=== PATIENT | female | born 1995 | race Caucasian/White ===

== ENCOUNTER 2016-11-01 02:00 | Emergency (ER) | payer MEDICAID ==
[2016-11-01 02:21] VITALS: BP 134/84
--- NOTE | 2016-11-01 05:01 | ER ---
DATE SEEN: 11/01/2016 CHIEF COMPLAINT: Injury of the left ankle. HISTORY OF PRESENT ILLNESS: This is a 21-year-old female, who jumped from a second story about 10 feet and landed on the left ankle. She was brought in by ambulance with an injury to the left ankle, obvious dislocation, and severe pain. She had been drinking alcohol and is intoxicated. REVIEW OF SYSTEMS: Denies any back pain, head injury, loss of consciousness, difficulty breathing. ALLERGIES: No known allergies. PHYSICAL EXAMINATION: GENERAL: Well nourished. VITAL SIGNS: Her blood pressure is normal. Temperature 97.2. HEAD: Normocephalic with no signs of trauma. EYES: Normal. NECK: No tenderness to palpation. Spine normal to inspection and palpation. ABDOMEN: Soft. CHEST: Clear. EXTREMITIES: Left ankle has an obvious posterior dislocation, but normal peripheral pulses. NEUROLOGIC: Mental status intoxicated and anxious. LABORATORY DATA: None. X-RAY: Tibial fracture and dislocation posteriorly of the ankle. IMPRESSION: Ankle dislocation. PLAN: I called the son to the ER, and Dr. Rae accepted the patient at 0230 hours, and patient will be sent over by ambulance. /[id number] BRODY/DIANA
--- NOTE | 2016-11-01 10:18 | CR ---
INDICATION: Fall. LEFT ANKLE: Frontal and lateral views of the left ankle revealed comminuted medial and lateral malleolar fracture fragments, as well as posterior malleolar fracture fragments with fairly marked lateral angulation at the fracture sites and with medial offset of approximately 1-2 cm of the distal fracture fragments. The talus is subluxed posteromedially. No other bone or joint abnormality was identified. IMPRESSION: Trimalleolar fracture with angulation and subluxation - significant deformity. GONZALO
== END 2016-11-01 03:15 ==
LOC: FB.ED 02:00
DX: S93.05XA Dislocation of left ankle joint, initial encounter (principal); W17.89XA Other fall from one level to another, initial encounter
CPT/HCPCS: 51702; 73600-LT; 99283; 99285

== ENCOUNTER 2016-12-06 22:06 | Emergency (ER) | payer MEDICAID ==
[2016-12-06] MEDS ORDERED: Iopamidol 755 Mg/ML 75 ML Bottle IV ONE (22:50)
[2016-12-06 23:13] VITALS: BP 126/79
--- NOTE | 2016-12-07 00:29 | EDM.PDOC ---
ED HPI GENERAL MEDICAL PROBLEM - General Chief Complaint: Wound Recheck Stated Complaint: LT LEG PAIN Time Seen by Provider: 12/06/16 22:35 Source of Information: Reports: Patient History Limitations: Reports: No Limitations - History of Present Illness INITIAL COMMENTS - FREE TEXT/NARRATIVE: 21 y.o.w.f. came to the ed s/p ORIF of left ankle. Pt noticed pus extruding from the surgical wound in the past 2 days. Pt was seen by a PMD yesterday. She came to the ed because her symptoms got worse. No F/C/N/V or any other acute medical issues. Onset: Unknown/Unsure Onset Date: 12/05/16 Onset Time: 09:00 Duration: Day(s):, Intermittent Location: Reports: Lower Extremity, Left Quality: Reports: Burning, Dull, Pressure Severity: Mild Improves with: Reports: Immobilization Worsens with: Reports: Movement Context: Reports: Other (S/P ORIF) Associated Symptoms: Reports: No Other Symptoms Treatments NEWS PRODUCTION ASSISTANT: Reports: NSAIDS - Related Data Allergies Allergy/AdvReac Type Severity Reaction Status Date / Time No Known Allergies Allergy Verified 12/06/16 23:03 Home Meds: Home Meds Ibuprofen 400 mg PO Q8HR 12/06/16 [History] Mupirocin Cream [Bactroban Crm] 1 applic TOP BID 12/06/16 [History] Past Medical History HEENT History: Reports: Impaired Vision Psychiatric History: Reports: Anxiety, Depression - Past Surgical History HEENT Surgical History: Reports: None Social & Family History - Family History Family Medical History: Noncontributory - Tobacco Use Smoking Status *Q: Never Smoker Second Hand Smoke Exposure: No - Caffeine Use Caffeine Use: Reports: Soda - Recreational Drug Use Recreational Drug Use: Yes Recreational Drug Type: Reports: Marijuana/Hashish Recreational Drug Use Frequency: Rarely ED ROS GENERAL - Review of Systems Review Of Systems: See Below Constitutional: Reports: No Symptoms HEENT: Reports: No Symptoms Respiratory: Reports: No Symptoms Cardiovascular: Reports: No Symptoms Endocrine: Reports: No Symptoms GI/Abdominal: Reports: No Symptoms : Reports: No Symptoms Musculoskeletal: Reports: Joint Pain (of left ankle) Skin: Reports: Wound (open wound left lat ankle with pus extruding) Neurological: Reports: No Symptoms Psychiatric: Reports: No Symptoms Hematologic/Lymphatic: Reports: No Symptoms Immunologic: Reports: No Symptoms ED EXAM, SKIN/RASH Exam: See Below Exam Limited By: No Limitations General Appearance: Alert, WD/WN, No Apparent Distress Eye Exam: Bilateral Eye: Normal Inspection Ears: Normal External Exam Nose: Normal Inspection, Normal Mucosa Throat/Mouth: Normal Inspection Head: Atraumatic, Normocephalic Neck: Normal Inspection, Supple, Non-Tender Respiratory/Chest: No Respiratory Distress, Normal Breath Sounds Cardiovascular: Normal Peripheral Pulses, Regular Rate, Rhythm Peripheral Pulses: 2+: Dorsalis Pedis (L) GI/Abdominal: Normal Bowel Sounds, Soft (Female) Exam: Deferred Rectal (Female) Exam: Deferred Back Exam: Normal Inspection Extremities: Normal Inspection, Other (surgical wound left lat ankle.) Neurological: Alert, Oriented, CN II-XII Intact Psychiatric: Normal Affect, Normal Mood Skin: Warm, Dry, Other (poor surgical wound healing) Course - Vital Signs Text/Narrative:: 21 y.o.w.f. came to the ed s/p ORIF of left ankle. Pt noticed pus extruding from the surgical wound in the past 2 days. Pt was seen by a PMD yesterday. She came to the ed because her symptoms got worse. No F/C/N/V or any other acute medical issues. PE: Poor wound healing left lat ankle with pus extruding. left ankle swelling Imaging: CT left ankle with IV contrast: neg for abscess formation. Impression: Wound check, poor surgical wound healing Tx: wound care Plan: F/U with ortho as scheduled this Sunday, d/c'd with instructions Last Recorded V/S: Last Vital Signs Temp 36.7 C 12/06/16 22:35 Pulse 86 12/06/16 22:35 Resp 16 12/06/16 22:35 BP 126/79 12/06/16 22:35 Pulse Ox 96 12/06/16 22:35 - Orders/Labs/Meds Orders: Active Orders 24 hr Category Date Time Status Lower Extremity w Cont Lt [CT] Stat Exams 12/06/16 22:17 Taken Labs: Laboratory Tests 12/06/16 12/06/16 12/06/16 Range/Units 22:35 22:35 22:55 WBC 11.1 (4.5-12.0) X10-3/uL RBC 4.18 (3.23-5.20) x10(6)uL Hgb 12.8 (11.5-15.5) g/dL Hct 37.3 (30.0-51.3) % MCV 89.3 (80-96) fL MCH 30.6 (27.7-33.6) pg MCHC 34.3 (32.2-35.4) g/dL RDW 13.3 (11.5-15.5) % Plt Count 176 (125-369) X10(3)uL MPV 9.9 (7.4-10.4) fL Neut % (Auto) 76.7 (46-82) % Lymph % (Auto) 14.5 (13-37) % Laurens % (Auto) 6.1 (4-12) % Eos % (Auto) 1 (1.0-5.0) % Baso % (Auto) 2 (0-2) % Neut # (Auto) 8.5 H (1.6-8.3) # Lymph # (Auto) 1.6 (0.6-5.0) # Laurens # (Auto) 0.7 (0.0-1.3) # Eos # (Auto) 0.1 (0.0-0.8) # Baso # (Auto) 0.2 (0.0-0.2) # Sodium 134 L (135-145) mmol/L Potassium 3.2 L (3.5-5.3) mmol/L Chloride 104 (100-110) mmol/L Carbon Dioxide 20 L (23-29) mmol/L BUN 14 (5-20) mg/dL Creatinine 0.8 (0.6-1.3) mg/dL Est Cr Clr Drug Dosing TNP Estimated GFR (MDRD) > 60 (>60) BUN/Creatinine Ratio 17.5 (9-20) Glucose 96 (80-116) mg/dL Calcium 9.2 (8.6-10.2) mg/dL Urine HCG, Qual Negative (NEGATIVE) Meds: Medications Discontinued Medications Generic Name Dose Route Start Last Admin Trade Name Freq PRN Reason Stop Dose Admin Iopamidol 75 ml 12/06/16 22:50 12/06/16 23:28 Isovue-370 (76%) IV 12/06/16 22:51 75 ml ONETIME ONE Administration Departure - Departure Time of Disposition: 00:25 Disposition: Home, Self-Care 01 Condition: Good Clinical Impression: Visit for wound check - Discharge Information Referrals: PCP,None [Primary Care Provider] - Forms: ED Department Discharge Additional Instructions: Please f/u with your Orthopedic surgeon as soon as possible. Rest. Ice and elevation, Motrin for pain. Please apply a 4x4 and GOLDEN wrap to left ankle, weight bearing as tolerated. Please come back to the ed if the symptoms get acutely worse. - My Orders Last 24 Hours: My Active Orders 12/06/16 22:17 Lower Extremity w Cont Lt [CT] Stat - Assessment/Plan Last 24 Hours: My Active Orders 12/06/16 22:17 Lower Extremity w Cont Lt [CT] Stat
== END 2016-12-07 01:20 | disposition home or self-care (01) ==
LOC: FB.ED 22:06
DX: Z48.01 Encounter for change or removal of surgical wound dressing (principal); F41.9 Anxiety disorder, unspecified; F32.9 Major depressive disorder, single episode, unspecified; Z98.890 Other specified postprocedural states
CPT/HCPCS: 73701; 80048; 81025; 85025; 99283; Q9967

== ENCOUNTER 2016-12-17 02:11 | Observation (INO) | payer MEDICAID ==
[2016-12-17] MEDS ORDERED: LORazepam 2 MG/ML MDV IVPUSH PRN (03:08)
[2016-12-17 03:22] LABS: ACETAMINOPHEN < 10 ug/mL (10-30)
[2016-12-17] MEDS ORDERED: LORazepam 2 MG/ML MDV IVPUSH ONE (03:30)
--- NOTE | 2016-12-17 03:43 | ER ---
DATE SEEN: 12/17/2016 CHIEF COMPLAINT: Overdose. HISTORY OF PRESENT ILLNESS: This is a 21-year-old female, who was brought in by ambulance. She had an argument with her boyfriend and sister earlier and she threatened to take Advil PM and Wellbutrin and some anxiety pills. However, the amount or medication specific is not available. The patient was brought in hallucinating and incoherent. She had also been drinking alcohol tonight. PAST MEDICAL HISTORY: Anxiety and depression. ALLERGIES: No known allergies. PHYSICAL EXAM: Respiratory rate is 20, temperature 97.4, blood pressure 135/95, and current heart rate is in the 140s. HEAD: Normal size. EYES: Pupils are dilated, but reactive to light. NECK: Supple. MENTAL STATUS: Hallucinating, garbled speech. LABORATORY DATA: Initial white cell count is normal and initial alcohol level is 0.02. IMPRESSION: Overdose of unknown substance. PLAN: We called the Poison Control, we suspect perhaps Benadryl and there is also a possibility of serotonin syndrome. I advised her we will admit to the ICU for monitoring. We will use lorazepam p.r.n., continue the IV fluids, ordered acetaminophen salicylate levels, urine drug screen, and Dr. Hill will follow the patient in the morning. /[id number] BRODY/DIANA
[2016-12-17] MEDS: Sodium Chloride 0.9% 1,000 ML IV SCH ×3 (03:45→17:21)
[2016-12-17] MEDS: LORazepam 2 MG/ML MDV IVPUSH PRN ×10 (06:02→22:12)
--- NOTE | 2016-12-17 08:36 | PCM.HP ---
H&P History of Present Illness - General Date of Service: 12/17/16 Admit Problem/Dx: Admission Diagnosis/Problem Admission Diagnosis/Problem Drug overdose Source of Information: EMS Notes Reviewed History Limitations: Reports: Altered Mental Status - History of Present Illness Initial Comments - Free Text/Narative: This is a 21-year-old female patient brought into the ER last night by ambulance. Patient is unable to talk because of overdose. These notes were taken from the ER record. No significant others to collaborate. Apparently she was in argument with her boyfriend and sister and she been using helical per she started to take Advil, Wellbutrin and anxiety pills. Later she was brought in by ambulance coherent and hallucinated. They think she took Benadryl and maybe some Wellbutrin. Poison control was called. They suggested placing ICU given her Ativan fluids and observation. She looks at me when I talk to her and she bases a few commands. When she tries to talk its incoherent. - Related Data Allergies/Adverse Reactions: Allergies Allergy/AdvReac Type Severity Reaction Status Date / Time No Known Allergies Allergy Verified 12/17/16 08:18 Home Medications: Home Meds Ibuprofen 400 mg PO Q8HR 12/06/16 [History] Mupirocin Cream [Bactroban Crm] 1 applic TOP BID 12/06/16 [History] Acetaminophen [Tylenol] 650 mg PO Q4H PRN 12/17/16 [History] Sennosides/Docusate Sodium [Darlin-Colace] 1 tab PO BID PRN 12/17/16 [History] Past Medical History HEENT History: Reports: Impaired Vision Psychiatric History: Reports: Addiction, Anxiety, Depression, Hallucinations, Panic Attack, Suicide Attempt, Other (See Below) Other Psychiatric History: possible suicide attempt, pt did jump out of a window when under the influence. Possible addiction. Pt told mother that she really likes her anxiety meds. Pt overdosed tonight. Pt is showing signs of ETOH addiction according to her mother. Pt is hallucinating r/t to overdose - Past Surgical History HEENT Surgical History: Reports: None Musculoskeletal Surgical History: Reports: Other (See Below) (Left ankle repair status post trimalleolar fracture of the ankle) Other Musculoskeletal Surgeries/Procedures:: broken ankle, surgery required. Pt jumped out of window Social & Family History - Family History Family Medical History: Noncontributory Psychiatric: Reports: Depression, Hallucinations, Panic Attack, Suicide Attempt Other Psychiatric Family History: biological mother has split personality disorder, adoptive mother reports. grandmother by suicide - Tobacco Use Smoking Status *Q: Never Smoker Second Hand Smoke Exposure: No - Caffeine Use Caffeine Use: Reports: None - Recreational Drug Use Recreational Drug Use: Yes Drug Use in Last 12 Months: Yes Recreational Drug Type: Reports: Marijuana/Hashish, Other (see below) Other Recreational Drug Type: unsure about other illicit drugs. Pt is unable to answer coherently. Recreational Drug Use Frequency: Rarely H&P Review of Systems - Review of Systems: Review Of Systems: Unable To Obtain Exam - Exam Exam: See Below - Vital Signs Vital Signs: Last Vital Signs Temp 98.7 F 12/17/16 07:25 Pulse 152 H 12/17/16 07:25 Resp 26 H 12/17/16 07:25 BP 127/92 H 12/17/16 07:25 Pulse Ox 97 12/17/16 07:25 Weight: 143 lb 1 oz - Exam General: Sedated, Lethargic, Obtunded HEENT: Conjunctiva Clear, Posterior Pharynx Clear, TMs Clear, Other (Pupils dilated bilateral). No: Pupils Equal Neck: Supple, Trachea Midline Lungs: Clear to Auscultation, Normal Respiratory Effort Cardiovascular: Regular Rate, Regular Rhythm, Tachycardia. No: Systolic Murmur , Diastolic Murmur Abdomen: Normal Bowel Sounds, Soft. No: Peritoneal Signs, Distention, Guarding Back Exam: Normal Inspection Extremities: Normal Inspection Skin: Warm, Dry, Intact Neurological: Normal Tone, Other (Patient moving at times like she startled. She looks around but does not respond.). No: Normal Speech Psychiatric: Other (Unable to assess) - Patient Data Lab Results Last 24 hrs: Laboratory Results - last 24 hr 12/17/16 Range/Units 04:25 Urine Opiates Screen Negative (NEGATIVE) Ur Oxycodone Screen Negative (NEGATIVE) Ur Propoxyphene Screen Negative (NEGATIVE) Ur Barbituates Screen Negative (NEGATIVE) Ur Tricyclics Screen Negative (NEGATIVE) Ur Phencyclidine Scrn Negative (NEGATIVE) Ur Amphetamine Screen Negative (NEGATIVE) Urine MDMA Screen Negative (NEGATIVE) U Benzodiazepines Scrn Negative (NEGATIVE) U Cocaine Metab Screen Negative (NEGATIVE) U Marijuana (THC) Screen Negative (NEGATIVE) Result Diagrams: 12/17/16 02:50 12/17/16 02:50 *Q Meaningful Use (ADM) - VTE *Q VTE Criteria *Q: - Stroke *Q Stroke Criteria *Q: - AMI *Q AMI Criteria *Q: - Problem List (1) Overdose SNOMED Code(s): 40725966 ICD Code: T50.901A - POISONING BY UNSP DRUG/MEDS/BIOL SUBST, ACCIDENTAL, INIT Status: Acute Current Visit: Yes (2) Suicide attempt SNOMED Code(s): 22803128 ICD Code: T14.91 - SUICIDE ATTEMPT Status: Acute Current Visit: Yes Problem List Initiated/Reviewed/Updated: Yes Orders Last 24hrs: Active Orders 24 hr Category Date Time Status Ibuprofen [Ibuprofen] Med 12/17/16 05:15 Pending 400 mg PO Q8HR LORazepam [Ativan] Med 12/17/16 04:22 Active 1 mg IVPUSH Q2H PRN Mupirocin Cream [Bactroban Crm] Med 12/17/16 09:00 Pending 1 applic TOP BID EKG 12 Lead [EK] Routine Ther 12/17/16 02:20 Ordered Medication Orders Sodium Chloride (Normal Saline) 1,000 mls @ 150 mls/hr IV ASDIRECTED [facility] Last Admin: 12/17/16 03:45 Dose: 150 mls/hr Lorazepam (Ativan) 1 mg IVPUSH Q2H PRN PRN Reason: Agitation Last Admin: 12/17/16 08:02 Dose: 1 mg Admin: 12/17/16 06:02 Dose: 1 mg Non-Formulary Medication (Ibuprofen [Ibuprofen]) 400 mg PO Q8HR [facility] Non-Formulary Medication (Mupirocin Cream [Bactroban Crm]) 1 applic TOP BID [facility] Assessment/Plan Comment:: 1. She was admitted to the ICU for observation until the drugs clear her system. 2. Poison control when observation observation with frequent use of Ativan when necessary.. 3. When the patient starts to clear the medication. I will get a better history was going on in her life. 4. IV fluids and nothing by mouth for now. 5. Telemetry. ICU orders per protocol.
[2016-12-17] MEDS ORDERED: LORazepam 2 MG/ML MDV IVPUSH STA (12:54)
[2016-12-17] MEDS: Sodium Chloride 0.9% 10 ML Syringe FLUSH PRN ×2 (17:00→17:23)
[2016-12-17] MEDS: Mupirocin Oint 22 GM Tube TOP SCH ×2 (17:19→22:10)
[2016-12-17] MEDS: Ibuprofen 400 MG Tab PO SCH (17:19)
[2016-12-17] MEDS: Polyvinyl Alcohol 1.4% Ophth Soln 15 ML Bottle EYEBOTH PRN ×2 (17:20→22:13)
[2016-12-18] MEDS: LORazepam 2 MG/ML MDV IVPUSH PRN ×7 (00:11→11:38)
[2016-12-18] MEDS: Sodium Chloride 0.9% 1,000 ML IV SCH ×3 (01:16→17:10)
[2016-12-18] MEDS: Ibuprofen 400 MG Tab PO SCH ×3 (02:11→17:03)
--- NOTE | 2016-12-18 08:58 | PCM.PN ---
- General Info Date of Service: 12/18/16 Admission Dx/Problem (Free Text): Patient answered a couple questions and fell asleep. Nurses report that she is talking little bit but then still has a twitching movements and her eyes are still dilated. - Patient Data Vitals - most recent: Last Vital Signs Temp 96.4 F 12/18/16 08:00 Pulse 93 12/18/16 08:00 Resp 16 12/18/16 08:00 BP 117/70 12/18/16 08:00 Pulse Ox 100 12/18/16 08:00 Weight - most recent: 144 lb 3.2 oz I&O - last 24 hours: Intake & Output 12/17/16 12/18/16 12/18/16 22:59 06:59 14:59 Intake Total 967 991 Output Total 1050 850 Balance -83 141 Med Orders - Current: Current Medications Artificial Tears (Liquitears 1.4% Ophth Soln) 1 ml EYEBOTH Q2H PRN PRN Reason: Dry Eyes Last Admin: 12/17/16 22:13 Dose: 1 drop Sodium Chloride (Normal Saline) 1,000 mls @ 125 mls/hr IV ASDIRECTED [facility] Last Admin: 12/18/16 01:16 Dose: 125 mls/hr Ibuprofen (Motrin) 400 mg PO Q8H [facility] Last Admin: 12/18/16 07:02 Dose: Not Given Lorazepam (Ativan) 1 mg IVPUSH Q1H PRN PRN Reason: Agitation Last Admin: 12/18/16 08:40 Dose: 1 mg Mupirocin (Bactroban Oint) 0 gm TOP BID [facility] Sodium Chloride (Saline Flush) 10 ml FLUSH ASDIRECTED PRN PRN Reason: Keep Vein Open Last Admin: 12/17/16 17:23 Dose: 10 ml Discontinued Medications Lorazepam (Ativan) 0.5 mg IVPUSH Q4H PRN PRN Reason: Agitation Lorazepam (Ativan) 1 mg IVPUSH ONETIME ONE Stop: 12/17/16 03:31 Last Admin: 12/17/16 03:58 Dose: 1 mg Lorazepam (Ativan) 1 mg IVPUSH Q2H PRN PRN Reason: Agitation Last Admin: 12/17/16 14:36 Dose: 1 mg Lorazepam (Ativan) 1 mg IVPUSH ONETIME STA Stop: 12/17/16 12:55 Last Admin: 12/17/16 12:55 Dose: 1 mg Mupirocin (Bactroban Oint) 0 gm TOP BID [facility] Last Admin: 12/17/16 22:10 Dose: Not Given - Exam General: other (Mildly improved from yesterday). No: alert, oriented, cooperative HEENT: Other (Pupils dilated) Neck: supple Lungs: Clear to auscultation, Normal respiratory effort Cardiovascular: Regular Rate, Regular Rhythm, No Murmurs Extremities: no edema - Problem List & Annotations (1) Overdose SNOMED Code(s): 14079894 Code(s): T50.901A - POISONING BY UNSP DRUG/MEDS/BIOL SUBST, ACCIDENTAL, INIT Status: Acute Current Visit: Yes (2) Suicide attempt SNOMED Code(s): 38916321 Code(s): T14.91 - SUICIDE ATTEMPT Status: Acute Current Visit: Yes - Problem List Review Problem List Initiated/Reviewed/Updated: Yes - My Orders Last 24 Hours: My Active Orders 12/17/16 12:50 Insert Urinary Catheter [OM.PC] Q24H 12/17/16 12:55 EKG 12 Lead [EK] Routine 12/17/16 12:58 Urinary Catheter Assessment [RC] 08,16,00 12/17/16 14:42 LORazepam [Ativan] 1 mg IVPUSH Q1H PRN 12/17/16 15:52 Sodium Chloride 0.9% [Saline Flush] 10 ml FLUSH ASDIRECTED PRN 12/17/16 16:01 Polyvinyl Alcohol [LiquiTears 1.4% Ophth Soln] 1 ml EYEBOTH Q2H PRN - Plan Plan:: 1. Patient is a little bit more alert. She still is under the effects of her medication. 2. When she becomes more awake start giving her a diet and decreasing her IV fluids. 3. When I can get a better history we'll assess her psychological condition. 4. Continue Ativan when necessary.
[2016-12-18] MEDS: Mupirocin Oint 22 GM Tube TOP SCH ×2 (09:54→21:07)
[2016-12-19] MEDS: Sodium Chloride 0.9% 1,000 ML IV SCH (00:46)
[2016-12-19] MEDS: Ibuprofen 400 MG Tab PO SCH (01:24)
--- NOTE | 2016-12-19 07:27 | PCM.PN ---
- General Info Date of Service: 12/19/16 Admission Dx/Problem (Free Text): Patient is now alert and awake. She states that she got in a fight with her sister and took a bunch of Advil PM. She also took some Effexor in a couple of the things she not aware of what they are. She states she's been depressed in the past but not recently. She states she does not want to harm herself at this time. - Patient Data Vitals - most recent: Last Vital Signs Temp 97.5 F 12/19/16 04:15 Pulse 82 12/19/16 04:15 Resp 18 12/19/16 04:15 BP 126/74 12/19/16 04:15 Pulse Ox 99 12/19/16 04:15 Weight - most recent: 144 lb 3.2 oz I&O - last 24 hours: Intake & Output 12/18/16 12/19/16 12/19/16 22:59 06:59 14:59 Intake Total 1305 1080 Output Total 1400 700 Balance -95 380 Med Orders - Current: Current Medications Discontinued Medications Artificial Tears (Liquitears 1.4% Ophth Soln) 1 ml EYEBOTH Q2H PRN PRN Reason: Dry Eyes Last Admin: 12/17/16 22:13 Dose: 1 drop Sodium Chloride (Normal Saline) 1,000 mls @ 125 mls/hr IV ASDIRECTED [facility] Last Admin: 12/19/16 00:46 Dose: 125 mls/hr Ibuprofen (Motrin) 400 mg PO Q8H [facility] Last Admin: 12/19/16 01:24 Dose: Not Given Lorazepam (Ativan) 0.5 mg IVPUSH Q4H PRN PRN Reason: Agitation Lorazepam (Ativan) 1 mg IVPUSH ONETIME ONE Stop: 12/17/16 03:31 Last Admin: 12/17/16 03:58 Dose: 1 mg Lorazepam (Ativan) 1 mg IVPUSH Q2H PRN PRN Reason: Agitation Last Admin: 12/17/16 14:36 Dose: 1 mg Lorazepam (Ativan) 1 mg IVPUSH ONETIME STA Stop: 12/17/16 12:55 Last Admin: 12/17/16 12:55 Dose: 1 mg Lorazepam (Ativan) 1 mg IVPUSH Q1H PRN PRN Reason: Agitation Last Admin: 12/18/16 11:38 Dose: 1 mg Mupirocin (Bactroban Oint) 0 gm TOP BID [facility] Last Admin: 12/17/16 22:10 Dose: Not Given Mupirocin (Bactroban Oint) 0 gm TOP BID [facility] Last Admin: 12/18/16 21:07 Dose: 1 applic Physostigmine Salicylate (Physostigmine) 2 mg IV ONETIME ONE Stop: 12/18/16 14:46 Last Admin: 12/18/16 14:51 Dose: 2 mg Sodium Chloride (Saline Flush) 10 ml FLUSH ASDIRECTED PRN PRN Reason: Keep Vein Open Last Admin: 12/17/16 17:23 Dose: 10 ml - Exam General: alert, oriented, cooperative Psy/Mental Status: alert, other (Patient has a more of a blunted affect. Speaks normal.) - Problem List & Annotations (1) Overdose SNOMED Code(s): 51426313 Code(s): T50.901A - POISONING BY UNSP DRUG/MEDS/BIOL SUBST, ACCIDENTAL, INIT Status: Acute Current Visit: Yes (2) Suicide attempt SNOMED Code(s): 07469904 Code(s): T14.91 - SUICIDE ATTEMPT Status: Acute Current Visit: Yes - Problem List Review Problem List Initiated/Reviewed/Updated: Yes - My Orders Last 24 Hours: My Active Orders 12/19/16 07:21 DC Baum Catheter [Urinary Catheter Removal] [RC] Per Unit Routine 12/19/16 07:22 Up ad Supriya [RC] ASDIRECTED Behavioral Health Evaluation [CONS] Routine 12/19/16 Lunch Regular Diet [DIET] - Plan Plan:: 1. DC Baum, telemetry, IV fluids, IV. 2. DC daily weights, I's and O's. 3. Up ad supriya. 4. Regular diet. 5. Consult Dr. Mercado psychiatry
--- NOTE | 2016-12-19 17:06 | PCM.DCSUM1 ---
Discharge Summary - Hospital Course Free Text/Narrative:: Hospital course-patient was admitted to the ICU with IV fluids. According to poison control he recommended aggressive lorazepam which was given almost every hour for the 2 days. It was assumed that she had Wellbutrin and Benadryl on board. Her eyes were dilated all-time. Patient woke up on day 2 a little. She was given 2 mg Physostigmine per the suggestion of poison neutral. Patient woke up and on day of discharge was coherent. She denied being depressed, sad, blue and stated she did not want herself.. When she was here she had urinary retention and a catheter was placed. Patient was able to eat and drink fine. She has psych consult and through the nurses recommended Topamax 5 mg twice a day for 1 week then 50 mrd twice a day after that. I do not start this see her primary provider this week and Zain and I'll send her a note with recommendations. The valve able to give a written copy of the psychiatric evaluation. He also recommended some AA. Patient states she only drinks occasionally and doesn't want to do this at this time. Brief History: This is a 21-year-old female patient brought into the ER last night by ambulance. Patient is unable to talk because of overdose. These notes were taken from the ER record. No significant others to collaborate. Apparently she was in argument with her boyfriend and sister and she been using helical per she started to take Advil, Wellbutrin and anxiety pills. Later she was brought in by ambulance coherent and hallucinated. They think she took Benadryl and maybe some Wellbutrin. Poison control was called. They suggested placing ICU given her Ativan fluids and observation. She looks at me when I talk to her and she bases a few commands. When she tries to talk its incoherent. - Discharge Data Discharge Date: 12/19/16 Discharge Disposition: Home, Self-Care 01 Condition: Good - Discharge Diagnosis/Problem(s) (1) Overdose SNOMED Code(s): 45266026 ICD Code: T50.901A - POISONING BY UNSP DRUG/MEDS/BIOL SUBST, ACCIDENTAL, INIT Status: Acute Current Visit: Yes (2) Suicide attempt SNOMED Code(s): 45312612 ICD Code: T14.91 - SUICIDE ATTEMPT Status: Acute Current Visit: Yes - Patient Summary/Data Consults: Consultations 12/19/16 07:22 Behavioral Health Evaluation [CONS] Routine Comment: Physician Instructions: Dr Mercado Quantity: Reason for Consult: Overdose - Patient Instructions Diet: Regular Diet as Tolerated Activity: As Tolerated Driving: May Drive Today Showering/Bathing: May Shower Other/Special Instructions: 1. Recheck with Lianet Andres this week. 2. Patient has an appointment with a counselor next week. This is already set up - Discharge Plan Patient Handouts: Deep Vein Thrombosis Forms: ED Department Discharge Referrals: PCP,Unknown [Primary Care Provider] - - Discharge Summary/Plan Comment DC Time >30 min.: No - Patient Data Vitals - Most Recent: Last Vital Signs Temp 98.1 F 12/19/16 08:00 Pulse 90 12/19/16 13:00 Resp 16 12/19/16 13:00 BP 123/75 12/19/16 13:00 Pulse Ox 99 12/19/16 13:00 Weight - Most Recent: 144 lb 3.2 oz I&O - Last 24 hours: Intake & Output 12/19/16 12/19/16 12/19/16 06:59 14:59 22:59 Intake Total 1080 200 Output Total 700 Balance 380 200 Med Orders - Current: Current Medications Discontinued Medications Artificial Tears (Liquitears 1.4% Ophth Soln) 1 ml EYEBOTH Q2H PRN PRN Reason: Dry Eyes Last Admin: 12/17/16 22:13 Dose: 1 drop Sodium Chloride (Normal Saline) 1,000 mls @ 125 mls/hr IV ASDIRECTED CONNOR Last Admin: 12/19/16 00:46 Dose: 125 mls/hr Ibuprofen (Motrin) 400 mg PO Q8H CONNOR Last Admin: 12/19/16 01:24 Dose: Not Given Lorazepam (Ativan) 0.5 mg IVPUSH Q4H PRN PRN Reason: Agitation Lorazepam (Ativan) 1 mg IVPUSH ONETIME ONE Stop: 12/17/16 03:31 Last Admin: 12/17/16 03:58 Dose: 1 mg Lorazepam (Ativan) 1 mg IVPUSH Q2H PRN PRN Reason: Agitation Last Admin: 12/17/16 14:36 Dose: 1 mg Lorazepam (Ativan) 1 mg IVPUSH ONETIME STA Stop: 12/17/16 12:55 Last Admin: 12/17/16 12:55 Dose: 1 mg Lorazepam (Ativan) 1 mg IVPUSH Q1H PRN PRN Reason: Agitation Last Admin: 12/18/16 11:38 Dose: 1 mg Mupirocin (Bactroban Oint) 0 gm TOP BID CONNOR Last Admin: 12/17/16 22:10 Dose: Not Given Mupirocin (Bactroban Oint) 0 gm TOP BID CONNOR Last Admin: 12/18/16 21:07 Dose: 1 applic Physostigmine Salicylate (Physostigmine) 2 mg IV ONETIME ONE Stop: 12/18/16 14:46 Last Admin: 12/18/16 14:51 Dose: 2 mg Sodium Chloride (Saline Flush) 10 ml FLUSH ASDIRECTED PRN PRN Reason: Keep Vein Open Last Admin: 12/17/16 17:23 Dose: 10 ml *Q Meaningful Use (DIS) - VTE *Q VTE Criteria *Q: - Stroke *Q Stroke Criteria *Q: - AMI *Q AMI Criteria *Q:
[2016-12-19 20:12] VITALS: BP 120/71
--- NOTE | 2017-01-01 02:22 | CONS ---
DATE OF CONSULTATION: 12/19/2016 This is a 60-minute inpatient clinical event. IDENTIFICATION: The patient is a 21-year-old female, who is admitted to the [facility] in [place], [place], on 12/17/2016. She is seen for psychiatric consultation. CHIEF COMPLAINT: "I took a bunch of pills." HISTORY OF PRESENT ILLNESS: The patient is a 21-year-old female, who was admitted on 12/17/2016 secondary to an overdose with Advil PM in the face of alcohol intoxication. Blood alcohol level on admission was 0.02. U-tox was negative. On interview, the patient is stating that she overdosed because of "a big argument between my older sister and I." She stated "I just felt everyone was against me." She felt overwhelmed and anxious and the fight with her sister even got physical and because of that, she drank and became hopeless and so she overdosed. She states that she is not suicidal now or homicidal. She denies any psychotic, delusional, or paranoid symptoms. She acknowledges she drank too much and denies having to be treated for depression or anxiety stating "I do not want to be on medications" at this point in time even though she does acknowledge she has anxiety and states "my anxiety is worse" lately. She does feel that the drinking has been exacerbating the anxiety, but she denies that drinking is an issue and that she can get a handle on it. She does report that she drinks alcohol about 3 times a week and uses "some marijuana" occasionally. Again, she is denying that she is suicidal or homicidal. Denying any depressed symptoms and stating that when she is medically stable, she would like to be discharged. She is not feeling like she needs psychiatric medications at this point in time. MEDICATIONS: At time of presentation none. ALLERGIES: No known drug allergies. PAST MEDICAL HISTORY: Status post broken left ankle. REVIEW OF SYSTEMS: Aside from musculoskeletal, all other major organ systems are negative at this point in time for acute difficulties or complications. FAMILY PSYCHIATRIC AND CD HISTORY: The patient reports father had a history of alcoholism. Mother had a history of chemical dependency issues. Brother and sister had a history of opioid dependence. PAST PSYCHIATRIC AND CD HISTORY: The patient denies any previous psychiatric hospitalization or chemical dependency treatments in the past. She reports occasional marijuana use at this point in time and drinking alcohol about 3 times a week presently. She states she has had 1 DWI in the past. She is a nontobacco user. PAST PSYCHIATRIC MEDICATION HISTORY: Includes Wellbutrin and also Effexor. She states the Effexor caused the bad response for her. SOCIAL HISTORY: The patient was born and raised in [place], [place] and [place], [place]. She has 3 siblings. The patient's parents were never . She was raised by her mother, maternal grandmother, and paternal uncle. Her parents were unemployed when the patient was growing up. Her highest level of education is 3 years of college. 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 She has never been . She has been in current relationship for 8 months. Her boyfriend is in the [employer] works in the [place], [place] area as a restaurant recruiter. The patient lives in [place], [place] with her boyfriend. Denies any children. Denies any abortions or miscarriages in the past. Denies any prior service. She reports she has a pending DWI charge from August 2016. She states is agnostic in terms of her prasad formation. MENTAL STATUS EXAM: The patient is a 21-year-old soft spoken white female, in no apparent distress. Speech is regular rate and rhythm. The patient is cognitively oriented. Psychomotor activity is within normal limits. There are no abnormal motor movements or tics. Her gait and station are not observed. This patient is bedbound during the course of the inpatient consult. Mood is anxious. Affect is cooperative overall for the purposes of the inpatient psychiatric consult. There is no behavioral or stated evidence of acute suicidal or homicidal ideation or acute psychotic, delusional, or paranoid symptoms. Thought processes are organized. There are no manic symptoms or loose associations evident. Judgment and insight appear unimpaired at this point in time. Motivation for help is poor to fair. VITAL SIGNS: 5 feet 7 inches tall, 145 pounds. 123/75, 92, 18, and 98.1 degrees. IMPRESSION: Adell I: 1. Depression, not otherwise specified, F32.9. 2. Anxiety disorder, not otherwise specified, F41.9. 3. Suspected alcohol dependence, F10.20. 4. Rule out bipolar affective disease, mixed type, F31.60. Adell II: None. Adell III: Status post broken left ankle. Adell IV: Severe. Adell V: 60. PLAN: 1. Sobriety. 2. Recommend beginning Topamax 25 mg b.i.d. x7 days, increasing to 50 mg b.i.d. thereafter to help reduce mood swings and anxiety. 3. Recommend AA to help the patient with alcohol issues. 4. Recommend that the patient be discharged back to community when medically stable as she does not appear to be in acute danger to herself or others at this point in time. 5. Recommend that the patient follow up with primary MD or Outpatient Psychiatry after she is discharged back to community within 1 to 2 weeks. 6. The patient is apprised of the benefits and side effects of her newly initiated and recommended psychiatric medication regimen. She acknowledges understanding and she said she had no further questions by the end of the interview session. 7. We will continue follow up with the patient on as needed basis while she remains on the inpatient medical unit. 8. We will followup with the patient sooner if there are any complications in the interim. 9. Crisis plan is in place. /[id number] MACHELLE/DIANA
== END 2016-12-19 18:30 | disposition home or self-care (01) ==
LOC: FB.ED 02:11 → FB.ICU 03:08
PROVIDERS: ADMIT Family Medicine; ATTEND Family Medicine
DX: T45.0X2A Poisoning by antiallergic and antiemetic drugs, intentional self-harm, initial encounter (principal); T14.91 Suicide attempt; F41.9 Anxiety disorder, unspecified; F32.9 Major depressive disorder, single episode, unspecified; Z98.890 Other specified postprocedural states; Z79.899 Other long term (current) drug therapy
CPT/HCPCS: 36415; 80053; 80305; 84702; 85025; 93005; 96361; 96374; 99285; A9270; G0480; J2060; J7040; J7050; 96375; 96376; G0378

== ENCOUNTER 2017-02-03 20:01 | Emergency (ER) | payer MEDICAID ==
[2017-02-03 20:28] VITALS: BP 121/84
[2017-02-03] MEDS ORDERED: Ibuprofen 600 MG Tab PO ONE (20:28)
--- NOTE | 2017-02-03 21:39 | EDM.PDOC ---
ED HPI GENERAL MEDICAL PROBLEM - General Chief Complaint: Lower Extremity Injury/Pain Stated Complaint: LEFT ANKLE Time Seen by Provider: 02/03/17 20:19 Source of Information: Reports: Patient History Limitations: Reports: No Limitations - History of Present Illness INITIAL COMMENTS - FREE TEXT/NARRATIVE: 21 years old w f came to the ed due to left ankle pain, vag discharge and rash at her r groin including painful vag intercourse. No N/V/D or any other acute medical issues. Pt had left ankle surgery in October 2016 at [facility]. No new trauma.However, it hurts when she stands for a long time at work. Onset: Unknown/Unsure Onset Date: 01/27/17 Onset Time: 08:00 Duration: Day(s):, Intermittent Left Ankle Pain Score (Numeric/FACES): 2 Vaginal Pain Score (Numeric/FACES): 6 - Related Data Allergies Allergy/AdvReac Type Severity Reaction Status Date / Time No Known Allergies Allergy Verified 02/03/17 20:19 Home Meds: Home Meds Doxycycline [Vibra-Tabs] 100 mg PO Q12HR #20 tab 02/03/17 [Rx] Fluconazole [Diflucan] 150 mg PO ONETIME #1 tab 02/03/17 [Rx] metroNIDAZOLE [Flagyl] 500 mg PO Q12H #14 tab 02/03/17 [Rx] Past Medical History HEENT History: Reports: Impaired Vision Other HEENT History: wears glasses or contacts Psychiatric History: Reports: Addiction, Anxiety, Depression, Hallucinations, Panic Attack, Suicide Attempt, Other (See Below) Other Psychiatric History: possible suicide attempt, pt did jump out of a window when under the influence. Possible addiction. Pt told mother that she really likes her anxiety meds. Pt overdosed tonight. Pt is showing signs of ETOH addiction according to her mother. Pt is hallucinating r/t to overdose - Past Surgical History HEENT Surgical History: Reports: None GI Surgical History: Reports: Colonoscopy Musculoskeletal Surgical History: Reports: ORIF, Other (See Below) Other Musculoskeletal Surgeries/Procedures:: broken ankle, surgery required. Pt jumped out of window Social & Family History - Family History Family Medical History: Noncontributory Psychiatric: Reports: Depression, Hallucinations, Panic Attack, Suicide Attempt Other Psychiatric Family History: biological mother has split personality disorder, adoptive mother reports. grandmother by suicide - Tobacco Use Smoking Status *Q: Never Smoker Second Hand Smoke Exposure: No - Caffeine Use Caffeine Use: Reports: Coffee, Soda - Recreational Drug Use Recreational Drug Use: Yes Drug Use in Last 12 Months: Yes Recreational Drug Type: Reports: Marijuana/Hashish Other Recreational Drug Type: unsure about other illicit drugs. Pt is unable to answer coherently. Recreational Drug Use Frequency: Not Used In Over 2 Months Recreational Drug Last Use: 11/2016 ED ROS GENERAL - Review of Systems Review Of Systems: See Below Constitutional: Reports: No Symptoms HEENT: Reports: No Symptoms Respiratory: Reports: No Symptoms Cardiovascular: Reports: No Symptoms Endocrine: Reports: No Symptoms GI/Abdominal: Reports: No Symptoms : Reports: Discharge Musculoskeletal: Reports: No Symptoms Skin: Reports: No Symptoms Neurological: Reports: No Symptoms Psychiatric: Reports: No Symptoms Hematologic/Lymphatic: Reports: No Symptoms Immunologic: Reports: No Symptoms ED EXAM, GI/ABD - Physical Exam Exam: See Below Exam Limited By: No Limitations General Appearance: Alert, WD/WN, Mild Distress Eyes: Bilateral: Normal Appearance Ears: Normal External Exam Nose: Normal Inspection Throat/Mouth: Normal Inspection, Normal Lips Head: Atraumatic, Normocephalic Neck: Normal Inspection, Supple, Non-Tender Respiratory/Chest: No Respiratory Distress, Lungs Clear, Normal Breath Sounds Cardiovascular: Normal Peripheral Pulses, Regular Rate, Rhythm, No Edema GI/Abdominal Exam: Normal Bowel Sounds, Soft, Non-Tender, No Organomegaly (Female) Exam: Normal Bimanual Exam, Cervical Discharge, Vaginal Discharge, Other (no CMT) Rectal (Female) Exam: Deferred Back Exam: Normal Inspection, Full Range of Motion Extremities: Normal Inspection, Normal Range of Motion, Non-Tender Neurological: Alert, Oriented, CN II-XII Intact, Normal Cognition, Normal Gait Psychiatric: Normal Affect, Normal Mood Skin Exam: Warm, Dry, Intact, Normal Color ED ABDOMINAL/GI PROCEDURES - Additional/Other Procedure(s) Procedure(s) (Free Text): Pelvic exam: Foliculitis guille anal. Nl introitus, cervical os is closed no CMT, No adnex tenderness, Cervix looks clean/nl. Course - Vital Signs Text/Narrative:: 21 years old w f came to the ed due to left ankle pain, vag discharge and rash at her r groin including painful vag intercourse. No N/V/D or any other acute medical issues. Pt had left ankle surgery in October 2016 at [facility]. No new trauma.However, it hurts when she stands for a long time at work. PE: Please see pelvic exam note above Imaging: Left ankle: ORIF, NAD: Labs: wet mount: vaginal yeast, trich and clue cells GC/CL results are panding Impression: Guille anal foliculitis, UTI, ankle sprain. vaginal yeast infection, Bacterial vaginitis. Tx: Motrin, Ice to left ankle. Fluconazole, Docy and Flagyl were prescribed Reexam: Improved Plan: D/C with instructions. Last Recorded V/S: Last Vital Signs Temp 37.7 C 02/03/17 22:37 Pulse 112 H 02/03/17 22:37 Resp 16 02/03/17 22:37 BP 121/84 02/03/17 22:37 Pulse Ox 98 02/03/17 22:37 - Orders/Labs/Meds Labs: Laboratory Tests 02/03/17 02/03/17 02/03/17 Range/Units 20:54 20:54 21:32 Urine Color Yellow (YELLOW) Urine Appearance Clear (CLEAR) Urine pH 6.5 (5.0-6.5) Ur Specific [place] 1.015 (1.010-1.025) Urine Protein Negative (NEGATIVE) mg/dL Urine Glucose (UA) Normal (NEGATIVE) mg/dL Urine Ketones Negative (NEGATIVE) mg/dL Urine Occult Blood Negative (NEGATIVE) Urine Nitrite Negative (NEGATIVE) Urine Bilirubin Negative (NEGATIVE) Urine Urobilinogen Normal (NEGATIVE) mg/dL Ur Leukocyte Esterase Small H (NEGATIVE) Urine RBC 5-10 (0) Urine WBC 0-5 (0) Ur Squamous Epith Cells Moderate H (NS,R,O) Urine Bacteria Few H (NS) Urine Mucus Moderate H (NS) Urine HCG, Qual Negative (NEGATIVE) Chlamydia/GC Source See below C.trachomatis RNA (TMA) Not detected (NOTDET) N.gonorrhoeae RNA (TMA) Not detected (NOTDET) Meds: Medications Discontinued Medications Generic Name Dose Route Start Last Admin Trade Name Freq PRN Reason Stop Dose Admin Doxycycline Hyclate 100 mg 02/03/17 22:20 Vibra-Tabs PO 02/03/17 22:21 ONETIME ONE Fluconazole 150 mg 02/03/17 22:14 Diflucan PO 02/03/17 22:15 ONETIME ONE Ibuprofen 600 mg 02/03/17 20:28 02/03/17 21:04 Motrin PO 02/03/17 20:29 600 mg ONETIME ONE Administration Metronidazole 500 mg 02/03/17 22:16 02/03/17 22:31 Flagyl PO 02/03/17 22:17 500 mg ONETIME ONE Administration Departure - Departure Time of Disposition: 22:23 Disposition: Home, Self-Care 01 Condition: Good Clinical Impression: Bacterial vaginitis, Vaginal yeast infection, Folliculitis - Discharge Information Prescriptions: Doxycycline [Vibra-Tabs] 100 mg PO Q12HR #20 tab Fluconazole [Diflucan] 150 mg PO ONETIME #1 tab metroNIDAZOLE [Flagyl] 500 mg PO Q12H #14 tab Referrals: PCP,None [Primary Care Provider] - Forms: ED Department Discharge Additional Instructions: Please take the meds (fluconazole, Flagyl and Doxy) as recommended, please follow up with your PMD, please come back to the ed if your symptom get acutely worse. Please apply ice to your left ankle, elevate it and follow up as scheduled with yours Orthopedic surgeon.
[2017-02-03] MEDS ORDERED: Fluconazole 150 MG Tab PO ONE (22:14)
[2017-02-03] MEDS ORDERED: metroNIDAZOLE 500 MG Tab PO ONE (22:16)
[2017-02-03] MEDS ORDERED: Doxycycline 100 MG Tab PO ONE (22:20)
--- NOTE | 2017-02-05 12:29 | CR ---
INDICATION: Pain. LEFT ANKLE: Three views of the left ankle were obtained 02/03/2017, and compared with 12/08/2016 and 11/01/2016. The most recent comparisons apparently are from [place]. The trimalleolar fracture fragments are in good position and alignment, without evidence of a definite complicating process. The ankle mortise appears to be fairly intact. The plates at the distal fibula and tibia, as well as the screws utilized to stabilize the plates, appear to be intact and unchanged in appearance compared with the previous study. The fracture lines have softened, compatible with early interval progress in healing, with endosteal sclerosis of mild degree also present. On the lateral views, there are two small calcific or bony densities anterior to the ankle joint, which could represent tiny spicules of bone from previous comminuted fracture in the soft tissues in that area. No other finding to suggest a complicating process could be identified. No new acute process was suggested. MTDD
== END 2017-02-03 22:37 | disposition home or self-care (01) ==
LOC: FB.ED 20:01
DX: S93.402A Sprain of unspecified ligament of left ankle, initial encounter (principal); N76.0 Acute vaginitis; B37.3 Candidiasis of vulva and vagina; L73.9 Follicular disorder, unspecified; F32.9 Major depressive disorder, single episode, unspecified; F41.0 Panic disorder [episodic paroxysmal anxiety]; X50.9XXA Other and unspecified overexertion or strenuous movements or postures, initial encounter
CPT/HCPCS: 73610; 81001; 81025; 87210; 87491; 87591; 99283; A9270

== ENCOUNTER 2017-05-17 09:37 | Emergency (ER) | payer MEDICAID ==
--- NOTE | 2017-05-17 10:33 | EDM.PDOC ---
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 Pt is 13 weeks . No trauma. Pt had vag intercourse this am, after which the vag bleed started. No pain, mild dysuria, however. No N/V/D or dizziness or any other acute medical issues at this time. BP 119/88 pulse 74 RR 17 Pulse ox 99% on RA Temp 36.7 Onset: Today Onset Date: 05/17/17 Onset Time: 05:00 Duration: Hour(s):, Intermittent Location: Reports: Pelvis Quality: Reports: Other (no pain, has dysuria) Severity: Mild Improves with: Reports: Rest Worsens with: Reports: Movement Context: Reports: Other (13 weeks with vag bleed. ) Associated Symptoms: Reports: No Other Symptoms - Related Data Allergies Allergy/AdvReac Type Severity Reaction Status Date / Time No Known Allergies Allergy Verified 05/17/17 10:52 Home Meds: Home Meds Nitrofurantoin Macrocrystal [Macrodantin] 100 mg PO BID #20 capsule 05/17/17 [Rx ] Ondansetron [Zofran ODT] 4 mg PO Q6H PRN #20 tab.dis 05/17/17 [Rx] Past Medical History HEENT History: Reports: Impaired Vision Other HEENT History: wears glasses or contacts Psychiatric History: Reports: Addiction, Anxiety, Depression, Hallucinations, Panic Attack, Suicide Attempt, Other (See Below) Other Psychiatric History: possible suicide attempt, pt did jump out of a window when under the influence. Possible addiction. Pt told mother that she really likes her anxiety meds. Pt overdosed tonight. Pt is showing signs of ETOH addiction according to her mother. Pt is hallucinating r/t to overdose - Past Surgical History HEENT Surgical History: Reports: None GI Surgical History: Reports: Colonoscopy Musculoskeletal Surgical History: Reports: ORIF, Other (See Below) Other Musculoskeletal Surgeries/Procedures:: broken ankle, surgery required. Pt jumped out of window Social & Family History - Family History Family Medical History: Noncontributory Psychiatric: Reports: Depression, Hallucinations, Panic Attack, Suicide Attempt Other Psychiatric Family History: biological mother has split personality disorder, adoptive mother reports. grandmother by suicide - Tobacco Use Smoking Status *Q: Never Smoker Second Hand Smoke Exposure: No - Caffeine Use Caffeine Use: Reports: Coffee, Soda - Recreational Drug Use Recreational Drug Use: Yes Drug Use in Last 12 Months: Yes Recreational Drug Type: Reports: Marijuana/Hashish Other Recreational Drug Type: unsure about other illicit drugs. Pt is unable to answer coherently. Recreational Drug Use Frequency: Not Used In Over 2 Months Recreational Drug Last Use: 11/2016 ED ROS GENERAL - Review of Systems Review Of Systems: See Below Constitutional: Reports: No Symptoms HEENT: Reports: No Symptoms Respiratory: Reports: No Symptoms Cardiovascular: Reports: No Symptoms Endocrine: Reports: No Symptoms GI/Abdominal: Reports: No Symptoms : Reports: Dysuria, Other (Vaginal bleed) Musculoskeletal: Reports: No Symptoms Skin: Reports: No Symptoms Neurological: Reports: No Symptoms Psychiatric: Reports: No Symptoms Hematologic/Lymphatic: Reports: No Symptoms Immunologic: Reports: No Symptoms ED EXAM - Physical Exam Exam: See Below Exam Limited By: No Limitations General Appearance: Alert, WD/WN, No Apparent Distress Eye Exam: Bilateral Eye: Normal Inspection Ears: Normal External Exam Nose: Normal Inspection Throat/Mouth: Normal Inspection, Normal Lips, Normal Teeth Head: Atraumatic, Normocephalic Neck: Normal Inspection, Supple, Non-Tender, Full Range of Motion Respiratory/Chest: No Respiratory Distress, Lungs Clear, Normal Breath Sounds Cardiovascular: Normal Peripheral Pulses, Regular Rate, Rhythm, No Edema, No Gallop, No JVD, No Murmur, No Rub GI/Abdominal Exam: Normal Bowel Sounds, Soft, Non-Tender, No Organomegaly, No Distention, No Abnormal Bruit, No Mass, Pelvis Stable Rectal Exam: Deferred (Female) Exam: Deferred for Placenta Previa (low positioned placenta) Heart Tones: Present Back Exam: Normal Inspection, Full Range of Motion Extremities: Normal Inspection, Normal Range of Motion, Non-Tender, No Pedal Edema Neurological: Alert, Oriented, CN II-XII Intact, Normal Cognition, Normal Gait, Normal Reflexes Psychiatric: Normal Affect, Normal Mood Skin Exam: Warm, Dry, Intact, Normal Color, No Rash Lymphatic: No Adenopathy Course - Vital Signs Text/Narrative:: 22 y.o.w.f AB0 came to the ed due to mild vag spotting since this am. Pt is 13 weeks . No trauma. Pt had vag intercourse this am, after which the vag bleed started. No pain, mild dysuria, however. No N/V/D or dizziness or any other acute medical issues at this time. BP 119/88 pulse 74 RR 17 Pulse ox 99% on RA Temp 36.7 PE: WDWN WF NAD with vag spotting. Did not change her pad yet. Imaging: Low laying placenta, Nl pregnency Labs: UA: UTI Pelvic exam: Pelvic exam was not performed due to low laying placenta Impression: Threatened miscarriage with vag spotting, low laying placenta, UTI Tx: Macrodantin as a prescription. Reexam: Improved Plan: Pelvic rest till Vag spotting stops completely, F/C, D/C with instructions. Last Recorded V/S: Last Vital Signs Temp 36.9 C 05/17/17 11:15 Pulse 78 05/17/17 11:15 Resp 18 05/17/17 11:15 BP 119/70 05/17/17 11:15 Pulse Ox 100 05/17/17 11:15 - Orders/Labs/Meds Orders: Active Orders 24 hr Category Date Time Status OB 1st Tri Sgl 1st Gest [US] Stat Exams 05/17/17 10:00 Taken CULTURE URINE [] Stat Lab 05/17/17 10:15 Received Labs: Laboratory Tests 05/17/17 Range/Units 10:15 Urine Color Red (YELLOW) Urine Appearance Cloudy (CLEAR) Urine pH 7.0 H (5.0-6.5) Ur Specific [place] 1.010 (1.010-1.025) Urine Protein 500 H (NEGATIVE) mg/dL Urine Glucose (UA) Normal (NEGATIVE) mg/dL Urine Ketones Negative (NEGATIVE) mg/dL Urine Occult Blood Large H (NEGATIVE) Urine Nitrite Negative (NEGATIVE) Urine Bilirubin Negative (NEGATIVE) Urine Urobilinogen Normal (NEGATIVE) mg/dL Ur Leukocyte Esterase Moderate H (NEGATIVE) Urine RBC Packed H (0) Urine WBC (0) Ur Squamous Epith Cells Few H (NS,R,O) Urine Bacteria Many H (NS) Departure - Departure Time of Disposition: 13:00 Disposition: Home, Self-Care 01 Condition: Good Clinical Impression: Threatened in second trimester, Vaginal spotting UTI (urinary tract infection) Qualifiers: Urinary tract infection type: acute cystitis Hematuria presence: with hematuria Qualified Code(s): N30.01 - Acute cystitis with hematuria - Discharge Information Prescriptions: Nitrofurantoin Macrocrystal [Macrodantin] 100 mg PO BID #20 capsule Ondansetron [Zofran ODT] 4 mg PO Q6H PRN #20 tab.dis PRN Reason: for nausea Instructions: Threatened Miscarriage, Vaginal Bleeding During , Second Trimester, [id number] Referrals: Monster Hill MD [Primary Care Provider] - Forms: ED Department Discharge, ED Return to Work/School Form Additional Instructions: Pelvic rest till the bleeding stopped entirely. Please f/u, come back if your symptoms get worse acutely. Macrodantin Abx as recommended. - My Orders Last 24 Hours: My Active Orders 05/17/17 10:00 OB 1st Tri Sgl 1st Gest [US] Stat 05/17/17 10:15 CULTURE URINE [RM] Stat - Assessment/Plan Last 24 Hours: My Active Orders 05/17/17 10:00 OB 1st Tri Sgl 1st Gest [US] Stat 05/17/17 10:15 CULTURE URINE [RM] Stat
[2017-05-17 11:15] VITALS: BP 119/70
--- NOTE | 2017-05-18 10:51 | US ---
INDICATION: Vaginal bleeding, question miscarriage. OB ULTRASOUND FIRST TRIMESTER: Multiple ultrasonic images revealed a single intrauterine gestation, with longitudinal lie and breech presentation. A normal amount of amniotic fluid is seen. Low-lying anterior placenta is noted, only approximately 1 cm from the internal cervical os. Regular heart rate of 149 BPM was noted. motion was noted during the examination. No adnexal mass lesions or free fluid collections were demonstrated. There were a few images obtained of the ovaries which appeared grossly normal. [place] rump length was compatible with 13 weeks 2 days gestational age, which is 2 weeks 2 days behind the LMP GA of 15 weeks 4 days. LISSA by ultrasound is 11/20/2017, compared with 11/04/2017 for the LMP LISSA. IMPRESSION: Essentially normal IUP of 13 weeks 2 days, except to note a 2 week 2 day discrepancy with the LMP GA. LISSA by ultrasound is 11/20/2017. Low-lying placenta noted. MTDD
== END 2017-05-17 11:15 | disposition home or self-care (01) ==
LOC: FB.ED 09:37
DX: O20.0 Threatened abortion (principal); O23.11 Infections of bladder in pregnancy, first trimester; R31.9 Hematuria, unspecified; Z3A.13 13 weeks gestation of pregnancy
CPT/HCPCS: 76801; 81001; 87086; 99284

== ENCOUNTER 2017-05-31 21:05 | Emergency (ER) | payer MEDICAID ==
[2017-05-31] MEDS ORDERED: Metoclopramide 10 MG/2 ML SDV IV ONE (21:33)
[2017-05-31] MEDS ORDERED: Sodium Chloride 0.9% 10 ML Syringe FLUSH PRN (21:37)
[2017-05-31] MEDS ORDERED: Sodium Chloride 0.9% 1,000 ML IV SCH (21:45)
[2017-05-31 22:42] VITALS: BP 120/80
--- NOTE | 2017-06-01 02:19 | ER ---
DATE SEEN: 05/31/2017 TIME SEEN: 2145 hours. REASON FOR VISIT: Nausea. HISTORY OF PRESENT ILLNESS: This is a 22-year-old female complaining of nausea and vomiting since this morning. She is about 15 weeks' . Has been using Zofran, but she has ran out. She messaged Dr. Hill and is here to hear something from him. No pain, cramping, bleeding. No fever. MEDICATIONS: Zofran. ALLERGIES: No known allergies. PHYSICAL EXAMINATION: GENERAL: Mildly dehydrated. VITAL SIGNS: Blood pressure and temperature normal. ENT: Negative. CHEST: Clear. ABDOMEN: Soft. LABORATORY DATA: None. IMPRESSION: Nausea and vomiting, . PLAN: 1 L of normal saline and Reglan 10 mg IV, felt better. DISPOSITION: Discharged home to follow up with Dr. Hill tomorrow. /[id number] BRODY/DIANA
== END 2017-05-31 22:40 | disposition home or self-care (01) ==
LOC: FB.ED 21:05
DX: O21.9 Vomiting of pregnancy, unspecified (principal); Z3A.15 15 weeks gestation of pregnancy
CPT/HCPCS: 96361; 96374; 99283; J2765; J7040

== ENCOUNTER 2017-11-21 07:09 | Inpatient (IN) | payer MEDICAID ==
--- NOTE | 2017-11-21 07:33 | PCM.SN ---
- Free Text/Narrative Note: This is a 22-year-old who is 39-6/7 weeks . She has history of genital herpes and is on prophylaxis currently. She's here for induction. O- heart tones reactive, abdomen with no pain. Cervix is 2/80/3 Group B-negative Assessment-39+ weeks group B negative history of genital herpes prophylaxis here for induction Plan-Pitoci, if she is in the labor we will AROM. Epidural when appropriate.
[2017-11-21] MEDS: Lactated Ringers 1,000 ML IV SCH ×2 (08:05→12:01)
[2017-11-21] MEDS ORDERED: Bupivacaine 0.25% 30 ML SDV EPIDUR ONE (11:50)
[2017-11-21] MEDS ORDERED: fentaNYL 300 MCG in Ropivacaine 200 ML EPIDUR ONE (11:50)
[2017-11-21] MEDS ORDERED: fentaNYL 100 MCG/2 ML SDV EPIDUR ONE (11:50)
[2017-11-21] MEDS ORDERED: Ondansetron 4 MG/2 ML SDV IVPUSH PRN (12:51)
[2017-11-21] MEDS ORDERED: diphenhydrAMINE 50 MG/ML SDV IV PRN (12:51)
[2017-11-21] MEDS ORDERED: Naloxone 0.4 MG/ML SDV IVPUSH PRN (12:51)
[2017-11-21] MEDS ORDERED: Promethazine 6.25 MG in Sodium Chloride 0.9% 50 ML IV PRN (12:51)
[2017-11-21] MEDS ORDERED: Promethazine 12.5 MG in Sodium Chloride 0.9% 50 ML IV PRN (12:51)
[2017-11-21] MEDS ORDERED: ePHEDrine 50 MG/ML SDV IVPUSH PRN (12:51)
[2017-11-21] MEDS ORDERED: Lactated Ringers 500 ML IV SCH (13:00)
--- NOTE | 2017-11-21 13:10 | PCM.SN ---
- Free Text/Narrative Note: Cervix-3 cm 80% effaced -3. AROM with green fluid no solids. Continue Pitocin and vaginal delivery.
--- NOTE | 2017-11-21 13:11 | PCM.SN ---
- Free Text/Narrative Note: Cervix-/-3. Epidural in. Continue current course.
[2017-11-21] MEDS ORDERED: Oxytocin 10 Units/1 ML SDV IM ONE (16:30)
[2017-11-21] MEDS ORDERED: Sodium Chloride 0.9% 10 ML Syringe FLUSH PRN (17:08)
[2017-11-21] MEDS ORDERED: Acetaminophen/Codeine 300-30 MG Tab PO PRN (17:08)
--- NOTE | 2017-11-21 17:08 | PCM.HP ---
H&P History of Present Illness - General Date of Service: 11/21/17 Admit Problem/Dx: Admission Diagnosis/Problem Admission Diagnosis/Problem -related examination Source of Information: Patient, Old Records History Limitations: Reports: No Limitations - History of Present Illness Initial Comments - Free Text/Narative: This is a 22-year-old who is 39 6/7 weeks with a due date of 11/22/17 here for induction. She is group B negative. Show normal course of care. She does have a history of herpes and was treated prophylactically with antiviral medications per she never had an outbreak. She has no concerns today. 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 Possible addiction. Pt told mother that she really likes her anxiety meds. Pt overdosed tonight. Pt is showing signs of ETOH addiction according to her mother. Pt is hallucinating r/t to overdose - Past Surgical History HEENT Surgical History: Reports: None GI Surgical History: Reports: Colonoscopy Musculoskeletal Surgical History: Reports: ORIF, Other (See Below) Other Musculoskeletal Surgeries/Procedures:: broken ankle, surgery required. Pt jumped out of window Social & Family History - Family History Family Medical History: Noncontributory Psychiatric: Reports: Depression, Hallucinations, Panic Attack, Suicide Attempt Other Psychiatric Family History: biological mother has split personality disorder, adoptive mother reports. grandmother by suicide - Tobacco Use Smoking Status *Q: Never Smoker Second Hand Smoke Exposure: No - Caffeine Use Caffeine Use: Reports: None - Recreational Drug Use Recreational Drug Use: No Other Recreational Drug Type: patient denies but chart indicates overdose of anti-anxiety medication. H&P Review of Systems - Review of Systems: Review Of Systems: See Below General: Reports: No Symptoms HEENT: Reports: No Symptoms Pulmonary: Reports: No Symptoms Cardiovascular: Reports: No Symptoms Gastrointestinal: Reports: Abdominal Pain Genitourinary: Reports: No Symptoms Musculoskeletal: Reports: No Symptoms Skin: Reports: No Symptoms Psychiatric: Reports: No Symptoms Neurological: Reports: No Symptoms Hematologic/Lymphatic: Reports: No Symptoms Immunologic: Reports: No Symptoms Exam - Exam Exam: See Below - Vital Signs Vital Signs: Last Vital Signs Temp 97.7 F 11/21/17 12:20 Pulse 72 11/21/17 12:40 Resp 17 11/21/17 12:40 BP 137/96 H 11/21/17 12:40 Pulse Ox 99 11/21/17 12:40 Weight: 182 lb - Exam General: Alert, Oriented, Cooperative HEENT: Hearing Intact, Mucosa Moist & [place], Nares Patent, Posterior Pharynx Clear, TMs Clear Neck: Supple, Trachea Midline Lungs: Clear to Auscultation, Normal Respiratory Effort Cardiovascular: Regular Rate, Regular Rhythm, Normal S1, Normal S2. No: Tachycardia, Systolic Murmur, Diastolic Murmur GI/Abdominal Exam: Normal Bowel Sounds, Soft, No Organomegaly, Other (Gravid) (Female) Exam: Normal External Exam, Other (2/80/-3 heart tones are reactive) Rectal (Female) Exam: Normal Rectal Tone Back Exam: Normal Inspection, Full Range of Motion, NT Extremities: Normal Inspection, Normal Range of Motion, Non-Tender, No Pedal Edema, Normal Capillary Refill Skin: Warm, Dry, Intact Neurological: Normal Speech, Normal Tone Neuro Extensive - Mental Status: Alert, Oriented x3, Normal Mood/Affect, Normal Cognition, Memory Intact Neuro Extensive - Motor, Sensory, Reflexes: Normal Gait Psychiatric: Alert, Normal Affect, Normal Mood - Problem List (1) Elective induction of labor planned SNOMED Code(s): 067848158 ICD Code: [id number] - Status: Acute Current Visit: Yes (2) History of herpes genitalis SNOMED Code(s): 343150377 ICD Code: Z86.19 - PERSONAL HISTORY OF OTHER INFECTIOUS AND PARASITIC DISEASES Status: Acute Current Visit: Yes Problem List Initiated/Reviewed/Updated: Yes Orders Last 24hrs: Active Orders 24 hr Category Date Time Status Admission Status [Patient Status] [ADT] Routine ADT 11/21/17 07:15 Active Admission Status [Patient Status] [ADT] Routine ADT 11/21/17 10:07 Active Bedrest [RC] ASDIRECTED Care 11/21/17 12:53 Active Communication Order [RC] ASDIRECTED Care 11/21/17 07:41 Active Communication Order [RC] ASDIRECTED Care 11/21/17 07:41 Active Communication Order [RC] ASDIRECTED Care 11/21/17 07:41 Active Communication Order [RC] ASDIRECTED Care 11/21/17 07:41 Active Communication Order [RC] ASDIRECTED Care 11/21/17 12:53 Active Head of Bed Elevation [RC] ASDIRECTED Care 11/21/17 12:53 Active Local Anesthetic Infusion Pump [RC] ASDIRECTED Care 11/21/17 12:53 Active Notify Provider [RC] PRN Care 11/21/17 07:41 Active Notify Provider [RC] STAT Care 11/21/17 07:41 Active Oxygen Therapy [RC] ASDIRECTED Care 11/21/17 12:53 Active PCEA Epidural [RC] ASDIRECTED Care 11/21/17 12:53 Active PCEA Epidural [RC] ASDIRECTED Care 11/21/17 12:53 Active Pasero Opioid Induced Sedation [RC] Q1H Care 11/21/17 12:53 Active Peripheral IV Care [RC] . DIRECTED Care 11/21/17 12:53 Active Urinary Catheter Assessment [RC] Q4H Care 11/21/17 12:53 Active Vital Signs [RC] PER UNIT ROUTINE Care 11/21/17 07:41 Active Vital Signs [RC] Q30M Care 11/21/17 12:53 Active Lactated Ringers [Ringers, Lactated] 1,000 ml Med 11/21/17 07:45 Active IV ASDIRECTED Lactated Ringers [Ringers, Lactated] 500 ml Med 11/21/17 13:00 Active IV .BOLUS Naloxone [Narcan] Med 11/21/17 12:51 Active 0.1 mg IVPUSH ONETIME PRN Ondansetron [Zofran] Med 11/21/17 12:51 Active 4 mg IVPUSH Q6H PRN Oxytocin/Normal Saline [Pitocin in NS 20 Units/1,000 ML Med 11/21/17 07:45 Active ] 20 unit in 1,000 ml IV TITRATE Promethazine [Phenergan] 12.5 mg Med 11/21/17 12:51 Active Sodium Chloride 0.9% [Normal Saline] 50 ml IV Q6H Promethazine [Phenergan] 6.25 mg Med 11/21/17 12:51 Active Sodium Chloride 0.9% [Normal Saline] 50 ml IV Q4H diphenhydrAMINE [Benadryl] Med 11/21/17 12:51 Active 25 mg IV ASDIRECTED PRN ePHEDrine [ePHEDrine Sulfate] Med 11/21/17 12:51 Active 5 mg IVPUSH ONETIME PRN Do Not Administer Anticoagulant Meds [AST] Per Unit Oth 11/21/17 12:53 Ordered Routine Do Not Administer IV Narcs or Sedatives [AST] Per Unit Ot 11/21/17 12:53 Ordered Routine Epidural Catheter Management [OM.PC] Urgent Oth 11/21/17 12:53 Ordered Respiratory Rate [OM.PC] Routine Oth 11/21/17 12:53 Ordered Code Status [Resuscitation Status] Routine Resus Stat 11/21/17 09:04 Ordered Medication Orders Diphenhydramine HCl (Benadryl) 25 mg IV ASDIRECTED PRN PRN Reason: Pruritus Ephedrine Sulfate (Ephedrine Sulfate) 5 mg IVPUSH ONETIME PRN PRN Reason: HYPOTENSION Lactated Ringer's (Ringers, Lactated) 1,000 mls @ 125 mls/hr IV ASDIRECTED CONNOR Last Infusion: 11/21/17 11:18 Dose: 999 mls/hr Admin: 11/21/17 08:05 Dose: 125 mls/hr Oxytocin/Sodium Chloride (Pitocin In Ns 20 Units/1,000 Ml) 20 unit in 1,000 mls @ 6 mls/hr IV TITRATE CONNOR; Protocol Last Admin: 11/21/17 08:18 Dose: 2 munits/min, 6 mls/hr Lactated Ringer's (Ringers, Lactated) 500 mls @ 999 mls/hr IV .BOLUS CONNOR Promethazine HCl 6.25 mg/ (Sodium Chloride) 50.25 mls @ 200 mls/hr IV Q4H PRN PRN Reason: Nausea/Vomiting Promethazine HCl 12.5 mg/ (Sodium Chloride) 50.5 mls @ 200 mls/hr IV Q6H PRN PRN Reason: Nausea/Vomiting Naloxone HCl (Narcan) 0.1 mg IVPUSH ONETIME PRN PRN Reason: Sedation Ondansetron HCl (Zofran) 4 mg IVPUSH Q6H PRN PRN Reason: Nausea/Vomiting Assessment/Plan Comment:: 1. Pitocin per protocol. 2. Group B is negative. 3. If she goes into labor epidural. AROM if she changes her cervix. 4. Continue antiviral until she delivers.
--- NOTE | 2017-11-21 17:14 | PCM.DEL ---
L & D Note - General Info Date of Service: 11/21/17 - Delivery Note Labor: Spontaneous, Augmented by Oxytocin Delivery Outcome: Livebirth Presentation: Left Occiput Anterior (HANNY) Nuchal Cord: None Anesthesia Type: None Anesthetic: Lidocaine (Xylocaine) 0.5% Plain Local Anesthetic Volume: 2cc Laceration: Perineal Suture type: Vicryl Suture size: 4-0 Placenta: Intact, Spontaneous Resuscitation Needed: No [place]: Suctioned - General Info Date of Service: 11/21/17 Admission Dx/Problem (Free Text): 22-year-old 39 6/7 weeks here for induction. Group B-. - Patient Data Vitals - Most Recent: Last Vital Signs Temp 97.7 F 11/21/17 12:20 Pulse 72 11/21/17 12:40 Resp 17 11/21/17 12:40 BP 137/96 H 11/21/17 12:40 Pulse Ox 99 11/21/17 12:40 Weight - Most Recent: 182 lb I&O - Last 24 Hours: Intake & Output 11/21/17 11/21/17 11/21/17 06:59 14:59 22:59 Output Total 550 Balance -550 Med Orders - Current: Current Medications Acetaminophen/Codeine Phosphate (Tylenol With Codeine No.3 300mg/30mg) 1 tab PO Q4H PRN PRN Reason: Pain (moderate 4-6) Diphenhydramine HCl (Benadryl) 25 mg IV ASDIRECTED PRN PRN Reason: Pruritus Ephedrine Sulfate (Ephedrine Sulfate) 5 mg IVPUSH ONETIME PRN PRN Reason: HYPOTENSION Lactated Ringer's (Ringers, Lactated) 1,000 mls @ 125 mls/hr IV ASDIRECTED CONNOR Last Infusion: 11/21/17 11:18 Dose: 999 mls/hr Oxytocin/Sodium Chloride (Pitocin In Ns 20 Units/1,000 Ml) 20 unit in 1,000 mls @ 6 mls/hr IV TITRATE CONNOR; Protocol Last Admin: 11/21/17 08:18 Dose: 2 munits/min, 6 mls/hr Lactated Ringer's (Ringers, Lactated) 500 mls @ 999 mls/hr IV .BOLUS CONNOR Promethazine HCl 6.25 mg/ (Sodium Chloride) 50.25 mls @ 200 mls/hr IV Q4H PRN PRN Reason: Nausea/Vomiting Promethazine HCl 12.5 mg/ (Sodium Chloride) 50.5 mls @ 200 mls/hr IV Q6H PRN PRN Reason: Nausea/Vomiting Ibuprofen (Motrin) 800 mg PO Q8H CONNOR Naloxone HCl (Narcan) 0.1 mg IVPUSH ONETIME PRN PRN Reason: Sedation Ondansetron HCl (Zofran) 4 mg IVPUSH Q6H PRN PRN Reason: Nausea/Vomiting Multivit/Folic Acid/Iron (-U) 1 each PO DAILY CONNOR Sodium Chloride (Saline Flush) 10 ml FLUSH ASDIRECTED PRN PRN Reason: Keep Vein Open - Exam General: Alert, Oriented Lungs: Clear to Auscultation, Normal Respiratory Effort Cardiovascular: Regular Rate, Regular Rhythm, No Murmurs - Problem List & Annotations (1) History of herpes genitalis SNOMED Code(s): 897411077 Code(s): Z86.19 - PERSONAL HISTORY OF OTHER INFECTIOUS AND PARASITIC DISEASES Status: Acute Current Visit: Yes (2) Vaginal delivery SNOMED Code(s): 999226068 Code(s): O80 - ENCOUNTER FOR FULL-TERM UNCOMPLICATED DELIVERY Status: Acute Current Visit: Yes - Problem List Review Problem List Initiated/Reviewed/Updated: Yes - My Orders Last 24 Hours: My Active Orders 11/21/17 07:41 Communication Order [RC] ASDIRECTED Communication Order [RC] ASDIRECTED Communication Order [RC] ASDIRECTED Communication Order [RC] ASDIRECTED Notify Provider [RC] PRN Notify Provider [RC] STAT Vital Signs [RC] PER UNIT ROUTINE 11/21/17 07:45 Lactated Ringers [Ringers, Lactated] 1,000 ml IV ASDIRECTED Oxytocin/Normal Saline [Pitocin in NS 20 Units/1,000 ML] 20 unit in 1,000 ml IV TITRATE 11/21/17 09:04 Code Status [Resuscitation Status] Routine 11/21/17 17:08 Patient Status [ADT] Routine May Shower [RC] ASDIRECTED Up ad Supriya [RC] ASDIRECTED Vital Signs [RC] PFP Acetaminophen/Codeine [Tylenol with Codeine No.3 300MG/30MG] 1 tab PO Q4H PRN Sodium Chloride 0.9% [Saline Flush] 10 ml FLUSH ASDIRECTED PRN Assess Lochia [WOMSER] Per Unit Routine Assess Uterine Involution [WOMSER] Per Unit Routine Breast Pump [WOMSER] Per Unit Routine Saline Lock Insert [OM.PC] Urgent 11/21/17 17:09 Ice Therapy [OM.PC] Per Unit Routine Perineal Care [OM.PC] Per Unit Routine Sitz Bath [OM.PC] Per Unit Routine 11/21/17 17:15 Ibuprofen [Motrin] 800 mg PO Q8H 11/21/17 Dinner Regular Diet [DIET] 11/22/17 05:11 CBC W/O DIFF,HEMOGRAM [HEME] AM 11/22/17 09:00 Vit/FA/Fe Fumarate [-U] 1 each PO DAILY - Plan Plan:: 1. Regular orders including ibuprofen around the clock and Tylenol No. 3 when necessary. 2. Stop antiviral continue vitamins. 3. Hemoglobin in the a.m.
[2017-11-21] MEDS: Ibuprofen 800 MG Tab PO SCH (17:55)
[2017-11-22] MEDS: Ibuprofen 800 MG Tab PO SCH ×3 (01:41→17:18)
--- NOTE | 2017-11-22 07:29 | PCM.PNPP ---
- General Info Date of Service: 11/22/17 Admission Dx/Problem (Free Text): Patient is without concerns. She says her bleeding slowing and her pain is under control. Breast-feeding is going well - Patient Data Vital Signs - Most Recent: Last Vital Signs Temp 97.8 F 11/22/17 00:00 Pulse 75 11/22/17 00:00 Resp 16 11/22/17 00:00 BP 112/75 11/22/17 00:00 Pulse Ox 99 11/22/17 00:00 Weight - Most Recent: 182 lb Lab Results - Last 24 Hours: Laboratory Results - last 24 hr 11/22/17 Range/Units 06:10 WBC 12.7 H (4.5-12.0) X10-3/uL RBC 3.58 (3.23-5.20) x10(6)uL Hgb 10.8 L (11.5-15.5) g/dL Hct 33.0 (30.0-51.3) % MCV 92.3 (80-96) fL MCH 30.1 (27.7-33.6) pg MCHC 32.6 (32.2-35.4) g/dL RDW 13.5 (11.5-15.5) % Plt Count 115 L (125-369) X10(3)uL Med Orders - Current: Current Medications Acetaminophen/Codeine Phosphate (Tylenol With Codeine No.3 300mg/30mg) 1 tab PO Q4H PRN PRN Reason: Pain (moderate 4-6) Lactated Ringer's (Ringers, Lactated) 500 mls @ 999 mls/hr IV .BOLUS CONNOR Ibuprofen (Motrin) 800 mg PO Q8H CONNOR Last Admin: 11/22/17 01:41 Dose: 800 mg Multivit/Folic Acid/Iron (-U) 1 each PO DAILY CONNOR Discontinued Medications Diphenhydramine HCl (Benadryl) 25 mg IV ASDIRECTED PRN PRN Reason: Pruritus Ephedrine Sulfate (Ephedrine Sulfate) 5 mg IVPUSH ONETIME PRN PRN Reason: HYPOTENSION Lactated Ringer's (Ringers, Lactated) 1,000 mls @ 125 mls/hr IV ASDIRECTED CONNOR Last Infusion: 11/21/17 14:00 Dose: 250 mls/hr Oxytocin/Sodium Chloride (Pitocin In Ns 20 Units/1,000 Ml) 20 unit in 1,000 mls @ 6 mls/hr IV TITRATE CONNOR; Protocol Last Titration: 11/21/17 14:00 Dose: 0 munits/min, 0 mls/hr Promethazine HCl 6.25 mg/ (Sodium Chloride) 50.25 mls @ 200 mls/hr IV Q4H PRN PRN Reason: Nausea/Vomiting Promethazine HCl 12.5 mg/ (Sodium Chloride) 50.5 mls @ 200 mls/hr IV Q6H PRN PRN Reason: Nausea/Vomiting Naloxone HCl (Narcan) 0.1 mg IVPUSH ONETIME PRN PRN Reason: Sedation Ondansetron HCl (Zofran) 4 mg IVPUSH Q6H PRN PRN Reason: Nausea/Vomiting Oxytocin (Pitocin) 10 unit IM ONETIME ONE Stop: 11/21/17 16:31 Last Admin: 11/21/17 20:31 Dose: 10 unit Sodium Chloride (Saline Flush) 10 ml FLUSH ASDIRECTED PRN PRN Reason: Keep Vein Open - Infant Interaction Infant Disposition, : in Room with Family Support Person: Significant Other - Recovery Exam Bladder Status: Voiding - Exam General: Alert, Oriented, Cooperative Lungs: Normal Respiratory Effort GI/Abdominal Exam: Other (Fundus firm) Psy/Mental Status: Alert, Normal Affect, Normal Mood - Problem List & Annotations (1) Vaginal delivery SNOMED Code(s): 732968712 Code(s): O80 - ENCOUNTER FOR FULL-TERM UNCOMPLICATED DELIVERY Status: Acute Current Visit: Yes - Problem List Review Problem List Initiated/Reviewed/Updated: Yes - My Orders Last 24 Hours: My Active Orders 11/21/17 07:41 Vital Signs [RC] PER UNIT ROUTINE 11/21/17 09:04 Code Status [Resuscitation Status] Routine 11/21/17 17:08 Patient Status [ADT] Routine May Shower [RC] ASDIRECTED Up ad Supriya [RC] ASDIRECTED Vital Signs [RC] PFP Acetaminophen/Codeine [Tylenol with Codeine No.3 300MG/30MG] 1 tab PO Q4H PRN Assess Lochia [WOMSER] Per Unit Routine Assess Uterine Involution [WOMSER] Per Unit Routine Breast Pump [WOMSER] Per Unit Routine Saline Lock Insert [OM.PC] Urgent 11/21/17 17:09 Ice Therapy [OM.PC] Per Unit Routine Perineal Care [OM.PC] Per Unit Routine Sitz Bath [OM.PC] Per Unit Routine 11/21/17 17:15 Ibuprofen [Motrin] 800 mg PO Q8H 11/21/17 Dinner Regular Diet [DIET] 11/22/17 09:00 Vit/FA/Fe Fumarate [-U] 1 each PO DAILY - Plan Plan:: Continue current care.
[2017-11-22] MEDS: Prenatal Multivitamin with Calcium/Folic Acid/Fe Fumarate Cap PO SCH (09:24)
[2017-11-23] MEDS: Ibuprofen 800 MG Tab PO SCH ×2 (01:45→10:18)
--- NOTE | 2017-11-23 09:59 | PCM.PNPP ---
- General Info Date of Service: 11/23/17 Functional Status: Reports: Pain Controlled - Review of Systems General: Reports: No Symptoms HEENT: Reports: No Symptoms Pulmonary: Reports: No Symptoms Cardiovascular: Reports: No Symptoms Gastrointestinal: Reports: No Symptoms Genitourinary: Reports: No Symptoms Musculoskeletal: Reports: No Symptoms Skin: Reports: No Symptoms Neurological: Reports: No Symptoms Psychiatric: Reports: No Symptoms - General Info Date of Service: 11/23/17 - Patient Data Vital Signs - Most Recent: Last Vital Signs Temp 97.8 F 11/22/17 00:00 Pulse 75 11/22/17 00:00 Resp 16 11/22/17 15:00 BP 112/75 11/22/17 00:00 Pulse Ox 99 11/22/17 00:00 Weight - Most Recent: 82.554 kg Med Orders - Current: Current Medications Acetaminophen/Codeine Phosphate (Tylenol With Codeine No.3 300mg/30mg) 1 tab PO Q4H PRN PRN Reason: Pain (moderate 4-6) Lactated Ringer's (Ringers, Lactated) 500 mls @ 999 mls/hr IV .BOLUS CONNOR Ibuprofen (Motrin) 800 mg PO Q8H CONNOR Last Admin: 11/23/17 01:45 Dose: 800 mg Multivit/Folic Acid/Iron (-U) 1 each PO DAILY CONNOR Last Admin: 11/22/17 09:24 Dose: 1 each Discontinued Medications Diphenhydramine HCl (Benadryl) 25 mg IV ASDIRECTED PRN PRN Reason: Pruritus Ephedrine Sulfate (Ephedrine Sulfate) 5 mg IVPUSH ONETIME PRN PRN Reason: HYPOTENSION Lactated Ringer's (Ringers, Lactated) 1,000 mls @ 125 mls/hr IV ASDIRECTED CONNOR Last Infusion: 11/21/17 14:00 Dose: 250 mls/hr Oxytocin/Sodium Chloride (Pitocin In Ns 20 Units/1,000 Ml) 20 unit in 1,000 mls @ 6 mls/hr IV TITRATE CONNOR; Protocol Last Titration: 11/21/17 14:00 Dose: 0 munits/min, 0 mls/hr Promethazine HCl 6.25 mg/ (Sodium Chloride) 50.25 mls @ 200 mls/hr IV Q4H PRN PRN Reason: Nausea/Vomiting Promethazine HCl 12.5 mg/ (Sodium Chloride) 50.5 mls @ 200 mls/hr IV Q6H PRN PRN Reason: Nausea/Vomiting Naloxone HCl (Narcan) 0.1 mg IVPUSH ONETIME PRN PRN Reason: Sedation Ondansetron HCl (Zofran) 4 mg IVPUSH Q6H PRN PRN Reason: Nausea/Vomiting Oxytocin (Pitocin) 10 unit IM ONETIME ONE Stop: 11/21/17 16:31 Last Admin: 11/21/17 20:31 Dose: 10 unit Sodium Chloride (Saline Flush) 10 ml FLUSH ASDIRECTED PRN PRN Reason: Keep Vein Open - Interaction Disposition, : [place] in Room with Family Support Person: Significant Other - Recovery Exam Fundal Tone: Firm Fundal Level: At Umbilicus Fundal Placement: Midline Lochia Amount: Moderate Lochia Color: Rubra/Red Perineum Description: Redness, Edematous, Hematoma Episiotomy/Laceration: Approximated Bladder Status: Voiding Urinary Elimination: Voided - Exam General: Alert, Oriented HEENT: Pupils Equal Neck: Supple Lungs: Clear to Auscultation, Normal Respiratory Effort Cardiovascular: Regular Rate, Regular Rhythm GI/Abdominal Exam: Normal Bowel Sounds, Soft, Non-Tender, No Organomegaly, No Distention, No Abnormal Bruit, No Mass, Pelvis Stable Extremities: Normal Inspection, Normal Range of Motion, Non-Tender, No Pedal Edema, Normal Capillary Refill Skin: Warm, Dry, Intact Wound/Incisions: Healing Well Neurological: No New Focal Deficit Psy/Mental Status: Alert, Normal Affect, Normal Mood - Problem List & Annotations (1) Vaginal delivery SNOMED Code(s): 701831231 Code(s): O80 - ENCOUNTER FOR FULL-TERM UNCOMPLICATED DELIVERY Status: Acute Current Visit: Yes (2) care and examination SNOMED Code(s): 543746302, 286780280, 295072908 Code(s): Z39.2 - ENCOUNTER FOR ROUTINE FOLLOW-UP Status: Acute Current Visit: Yes - Problem List Review Problem List Initiated/Reviewed/Updated: Yes - Plan Plan:: Patient is doing well and will be discharged home today..
[2017-11-23] MEDS: Prenatal Multivitamin with Calcium/Folic Acid/Fe Fumarate Cap PO SCH (10:18)
--- NOTE | 2017-11-23 14:21 | DISCH ---
DISCHARGE DATE: 11/23/2017 REASON FOR ADMISSION: Induction of labor. DISCHARGE DIAGNOSES: Vaginal delivery and anemia of blood loss. BRIEF HISTORY: A 22-year-old female admitted because of induction at 39 weeks plus. She delivered by Dr. Hill vaginally. No complications. She is ready to be discharged today. She is . Hemoglobin was 10.8, second day, . Bleeding has improved. DISCHARGE MEDICATIONS: She will be discharged on ibuprofen and vitamins. FOLLOW UP: With Dr. Hill within 6 weeks of discharge. Please note that I spent more than 35 minutes in the discharge of the patient. /[id number] BRODY/DIANA
[2017-11-23 14:26] VITALS: BP 120/70
== END 2017-11-23 11:00 | disposition home or self-care (01) | DRG 774 ==
LOC: FB.OB 07:09 → OBSVTOIN 10:07
PROVIDERS: ADMIT Family Medicine; ATTEND Family Medicine
PROC: 10E0XZZ Delivery of Products of Conception, External Approach (ICD-10-PCS; principal; 2017-11-21)
PROC: 3E0S3GC Introduction of Other Therapeutic Substance into Epidural Space, Percutaneous Approach (ICD-10-PCS; 2017-11-21)
PROC: 10907ZC Drainage of Amniotic Fluid, Therapeutic from Products of Conception, Via Natural or Artificial Opening (ICD-10-PCS; 2017-11-21)
PROC: 0HQ9XZZ Repair Perineum Skin, External Approach (ICD-10-PCS; 2017-11-21)
PROC: 00HU33Z Insertion of Infusion Device into Spinal Canal, Percutaneous Approach (ICD-10-PCS; 2017-11-21)
DX: O98.32 Other infections with a predominantly sexual mode of transmission complicating childbirth (principal); O98.313 Other infections with a predominantly sexual mode of transmission complicating pregnancy, third trimester; Z3A.39 39 weeks gestation of pregnancy; Z37.0 Single live birth; O90.81 Anemia of the puerperium; D50.0 Iron deficiency anemia secondary to blood loss (chronic); Z91.5 Personal history of self-harm; A60.00 Herpesviral infection of urogenital system, unspecified; O70.0 First degree perineal laceration during delivery
CPT/HCPCS: 36415; 51701; 59300; 59409; 85027; A9270-GY; J2590; J2795; J3010; J3490; J7120